=== PATIENT | female | born 1990 | race Caucasian/White ===

== ENCOUNTER 2018-04-20 08:05 | Inpatient (IN) | payer OTHER ==
[~2018-04-20] VITALS: Ht 152.4 cm; Wt 63.0 kg
[2018-04-20] MEDS ORDERED: RINGERS SOLUTION,LACTATED 1,000 ML IV PRN (08:45)
[2018-04-20] MEDS ORDERED: OXYTOCIN 30 UNITS/LACT RINGERS 500 ML IV PRN (08:45)
[2018-04-20] MEDS ORDERED: METOCLOPRAMIDE HCL 5 MG/ML 2 ML VIAL IVP PRN (08:45)
[2018-04-20] MEDS ORDERED: OXYGEN THERAPY IH SCH (08:45)
[2018-04-20] MEDS ORDERED: CITRIC ACID/SODIUM CITRATE 30 ML SOLUTION UDCUP PO PRN (08:45)
[2018-04-20] MEDS ORDERED: LIDOCAINE/PF 1% 30 ML VIAL INJ PRN (08:45)
[2018-04-20] MEDS ORDERED: METHYLERGONOVINE MALEATE 0.2 MG/ML VIAL IM PRN (08:45)
[2018-04-20 09:13] VITALS: BP 131/82
[2018-04-20 09:43] LABS: BASOPHILS % (AUTO) 0.2 % (0.0-2.0); EOSINOPHILS % (AUTO) 0 % (1.0-6.0); HEMATOCRIT 37.8 % (36-46); HEMOGLOBIN 13.3 g/dL (12.0-16.0); LYMPHOCYTES # (AUTO) 0.8 K/uL (1.0-4.8); MEAN CORPUSCULAR HEMOGLOBIN 32.3 pg (26.0-34.0); MEAN CORPUSCULAR VOLUME 92 fL (80-100); MONOCYTES # (AUTO) 0.5 K/uL (0.1-1.0); MONOCYTES % (AUTO) 3.1 % (2.0-9.0); NEUTROPHILS # (AUTO) 15.3 K/uL (1.8-7.7); NEUTROPHILS % (AUTO) 91.7 % (40.0-70.0); PLATELET COUNT (AUTO) 191 K/uL (150-450); RED CELL DISTRIBUTION WIDTH 14.6 % (11.5-14.5)
[2018-04-20] MEDS ORDERED: PREN1TAB80 PO (11:03)
[2018-04-20] MEDS: FentaNYL CITRATE-PF 100 MCG/2 ML VIAL IVP PRN ×2 (12:04→13:52)
[2018-04-20] MEDS ORDERED: LIDOCAINE/PF 2% 5 ML VIAL ONE (14:06)
[2018-04-20] MEDS ORDERED: ROPIVACAINE HCL/PF 0.2% 100 ML ED ONE (14:06)
[2018-04-20] MEDS ORDERED: ONDANSETRON HCL 4 MG/2 ML VIAL IVP PRN (14:30)
[2018-04-20] MEDS ORDERED: DiphenhydrAMINE HCL 50 MG/ML VIAL IVP PRN (14:30)
[2018-04-20] MEDS ORDERED: NALBUPHINE HCL 10 MG/ML VIAL IVP PRN (14:30)
[2018-04-20] MEDS ORDERED: ROPIVACAINE HCL/PF 0.2% 100 ML ED PRN (14:30)
[2018-04-20] MEDS: RINGERS SOLUTION,LACTATED 1,000 ML IV SCH ×2 (15:19→20:59)
[2018-04-21] MEDS: RINGERS SOLUTION,LACTATED 1,000 ML IV SCH (04:42)
[2018-04-21] MEDS ORDERED: RINGERS SOLUTION,LACTATED 1,000 ML IV ONE (10:40)
[2018-04-21] MEDS ORDERED: GLYCERIN/WITCH HAZEL LEAF 40 PADS JAR TP PRN (10:45)
[2018-04-21] MEDS ORDERED: LANOLIN 7 GM OINTMENT TP PRN (10:45)
[2018-04-21] MEDS ORDERED: BENZOCAINE 20%/MENTHOL 56 GM SPRAY CANISTER TP PRN (10:45)
[2018-04-21] MEDS ORDERED: OxyCODONE HCL/ACETAMINOPHEN 5-325 MG TABLET PO PRN ×2 (10:45)
[2018-04-21] MEDS ORDERED: MEASLES/MUMPS/RUBELLA VACCINE, LIVE 0.5 ML/VIAL SQ ONE (10:45)
[2018-04-21] MEDS: IBUPROFEN 600 MG TABLET PO PRN ×2 (11:01→21:25)
[2018-04-21] MEDS: MAGNESIUM HYDROXIDE SUSPENSION 30 ML UDCUP PO SCH (21:00)
[2018-04-22] MEDS: MAGNESIUM HYDROXIDE SUSPENSION 30 ML UDCUP PO SCH (09:00)
[2018-04-22] MEDS ORDERED: IBUP-2071 PO (09:37)
[2018-04-22] MEDS ORDERED: DSS100 PO (09:39)
== END 2018-04-22 11:15 | disposition home or self-care (01) | DRG 807 ==
LOC: OBSVTOIN 08:05 → 4S 08:05
PROVIDERS: ADMIT Obstetrics & Gynecology; ATTEND Obstetrics & Gynecology
PROC: 10D07Z6 Extraction of Products of Conception, Vacuum, Via Natural or Artificial Opening (ICD-10-PCS; principal; 2018-04-21)
PROC: 0KQM0ZZ Repair Perineum Muscle, Open Approach (ICD-10-PCS; 2018-04-21)
PROC: 3E0R3BZ Introduction of Anesthetic Agent into Spinal Canal, Percutaneous Approach (ICD-10-PCS; 2018-04-21)
PROC: 00HU33Z Insertion of Infusion Device into Spinal Canal, Percutaneous Approach (ICD-10-PCS; 2018-04-21)
DX: O77.0 Labor and delivery complicated by meconium in amniotic fluid (principal); Z37.0 Single live birth; O70.1 Second degree perineal laceration during delivery; Z3A.40 40 weeks gestation of pregnancy
CPT/HCPCS: 86850; 86900; 86901; 90686; 96374; J2590; J2795; J3010; J3490; J7120